=== PATIENT | male | born 1940 | race Caucasian/White ===

== ENCOUNTER 2017-01-12 10:24 | Day surgery (SDC) | payer MEDICARE ==
[~2017-01-12] VITALS: Ht 182.9 cm; Wt 98.5 kg
[~2017-01-12 10:24] MED LIST: AMLO1TAB15 PO; ASPI-483 PO; CITA-108 PO; METO-104 PO; NORMAL SALINE 1,000 ML IV ONE
--- OUTSIDE RECORDS SUMMARY | 2017-01-12 10:28 | XMS REPORT | Continuity of Care Document ---
Author Author [facility] Organization [facility] Address Unknown Phone Unavailable Care Team Providers Care Aeronautics Commission Director Name Role Phone MOHSEN VALDEZ II, MD Primary Care Physician [phone] Insurance Providers Guarantor Alexis Sage Address [address] [place] [address] Email DENIED PT PORTAL 16 Payer [employer] H[employer] Policy Number [id number] Subscriber's Name Alexis Sage Relationship 18 Self Advance Directives Directive Response Recorded Date/Time Dr Land Resuscitation Status Full Code 11/12/16 12:03pm Resuscitation Documents on File No 11/13/16 9:10am DPOA for Healthcare Only No 11/13/16 9:10am Living Will No 11/13/16 9:10am Problems No problem information available. Medications Current Home Medications Medication Dose Units Route Directions Days Qty Instructions Start Date Amlodipine/Valsartan (Exforge 10-320 Mg Tablet) 1 Tab Tablet 1 Tab Oral Daily 11/06/12 Aspirin (Baby Aspirin) 81 Mg Tab.chew 81 Mg Oral Daily 11/06/12 Citalopram Hydrobromide (Celexa) 40 Mg Tablet 40 Mg Oral Daily Metoprolol Succinate 100 Mg Tab.sr.24h 100 Mg Oral Daily 11/06/12 Social History Social History Problem Response Recorded Date/Time Onset Date Status Reason for Hospitalization EXCISION OF NOSE LESION 11/13/2016 1:33pm Not Applicable Not Applicable Chewing Tobacco Status No 11/13/2016 9:05am Not Applicable Not Applicable Hx Substance Use No 11/13/2016 9:05am Not Applicable Not Applicable Hx Alcohol Use No 11/13/2016 9:05am Not Applicable Not Applicable Has the pt used tobacco in the last 12 months Yes 11/13/2016 9:05am Not Applicable Not Applicable Query Response Start Date Stop Date Smoking Status Current every day smoker Hospital Discharge Instructions Instructions: Care Instructions: I was in the hospital because (patient own words): cut this off my nose Discharge Diet: Resume previous diet. Discharge Activity: Restricted. Follow Up Appointments: Call [facility] at ext [phone] and make appointment for patient to see Dr Hawkins for postop visit on 11-25-16 or 11-26-16. Pending Lab / Results: No Pending Lab Expected Signs/Symptoms: Usual incisional discomfort Notify Physician If: Any concerns about appearance of wound. During Business Hours:: Please call the physician's office at [phone] and choose option 2. After Business Hours:: Please call [phone] and have the utility tractor operator page Dr. Hawkins. Pain Management/Treatment: Take analgesics as prescribed. Wound/Incision Care: Remove dressings as instructed by physician. Condition at time of discharge: Good Plan of Care Discharge Date 11/13/16 2:31pm Instructions/Education Provided [facility] Surgical Services Prescriptions See Medication Section Functional Status Query Response Date Recorded Ability to complete ADL's impeded by No change November 13, 2016 9:10am Allergies, Adverse Reactions, Alerts No known allergies. Immunizations Query Response on File Recorded Date/Time Hx Influenza Vaccination Y 201611/13/16 9:05am Hx Pneumococcal Vaccination Y 201611/13/16 9:05am Hx Influenza Vaccination Y 201611/13/16 9:05am Vital Signs Acute Vital Signs Vital Response Date/Time Temperature (Fahrenheit) 97.0 deg F (96.8 - 99.1) 11/13/2016 1:06pm Temperature (Calculated Celsius) 36.22999 degrees C (36.0 - 37.3) 11/13/2016 1:06pm Temperature Source Temporal 11/13/2016 1:06pm Pulse Rate (adult) 58 bpm (60 - 100) 11/13/2016 2:20pm Respiratory Rate 16 breaths/min (10 - 20) 11/13/2016 2:20pm O2 Sat by Pulse Oximetry 91 % (90 - 100) 11/13/2016 2:20pm Oxygen Delivery Method Room Air 11/13/2016 2:20pm Oxygen Flow Rate 6.00 L/min 11/13/2016 1:06pm Blood Pressure 162/75 mm Hg 11/13/2016 2:20pm Blood Pressure Source Automatic Cuff 11/13/2016 2:20pm Height (Feet) 5 feet 11/13/2016 9:01am Height (Inches) 11.00 inches 11/13/2016 9:01am Weight (Kilograms) 98.700 kg 11/13/2016 9:01am Body Mass Index (BMI) 30.4 11/13/2016 9:01am Results Laboratory Results Test Name Result Units Flags Reference Collection Date/Time Result Date/ Time Comments White Blood Count 9.2 T/MM3 4.5-11.0 11/13/2016 9:08am 11/13/2016 9: 14am Red Blood Count 4.83 M/MM3 4.50-5.90 11/13/2016 9:08am 11/13/2016 9: 14am Hemoglobin 14.3 GM/DL 13.5-17.5 11/13/2016 9:08am 11/13/2016 9:14am Hematocrit 43.4 % 41-53 11/13/2016 9:08am 11/13/2016 9:14am Mean Corpuscular Volume 89.9 UM3 80-100 11/13/2016 9:08am 11/13/2016 9: 14am Mean Corpuscular Hemoglobin 29.6 UUG 26-34 11/13/2016 9:08am 2016 9:14am Mean Corpuscular Hemoglobin Concent 32.9 GM/DL 31-37 11/13/2016 9:08am 11/13/2016 9:14am RDW Standard Deviation 47.8 FL 36.9-50.2 11/13/2016 9:08am 11/13/2016 9 :14am Platelet Count 221 T/MM3 130-400 11/13/2016 9:08am 11/13/2016 9:14am Mean Platelet Volume 9.4 UM3 9.4-12.4 11/13/2016 9:08am 11/13/2016 9: 14am Neutrophils (%) (Auto) 65.6 % 33-66 11/13/2016 9:08am 11/13/2016 9: 14am Lymphocytes (%) (Auto) 20.0 % L 23-45 11/13/2016 9:0811/13/2016 9: 14am Monocytes (%) (Auto) 11.2 % H 0-9.0 11/13/2016 9:0811/13/2016 9:14am Eosinophils (%) (Auto) 2.7 % 0-4 11/13/2016 9:0811/13/2016 9:14am Basophils (%) (Auto) 0.3 % 0-2 11/13/2016 9:0811/13/2016 9:14am Immature Granulocyte % (Auto) 0.2 % 0.0-0.5 11/13/2016 9:082016 9:14am Absolute Neutrophils (auto) 6.1 T/MM3 1.8-7.7 11/13/2016 9:082016 9:14am Absolute Lymphocytes (auto) 1.8 T/MM3 1-4.8 11/13/2016 9:082016 9:14am Absolute Monocytes (auto) 1.0 T/MM3 H 0-0.8 11/13/2016 9:082016 9:14am Absolute Eosinophils (auto) 0.3 T/MM3 0-0.5 11/13/2016 9:082016 9:14am Absolute Basophils (auto) 0.0 T/MM3 0-0.2 11/13/2016 9:0811/13/2016 9:14am Absolute Immature Granulocyte (auto 0.02 T/MM3 0.00-0.03 11/13/2016 9: 0811/13/2016 9:14am Icterus Index < 2 0-7 11/13/2016 9:0811/13/2016 9:23am Chemistry Specimen Hemolysis < 15 0-25 11/13/2016 9:0811/13/2016 9 :23am 0-25: Specimen Exhibited No Hemolysis. Turbidity < 20 0-20 11/13/2016 9:0811/13/2016 9:23am Sodium Level 141 MEQ/L 134-144 11/13/2016 9:0811/13/2016 9:23am Potassium Level 4.8 MEQ/L 3.6-5 11/13/2016 9:0811/13/2016 9:23am Chloride Level 107 MEQ/L 98-107 11/13/2016 9:0811/13/2016 9:23am Carbon Dioxide Level 24 MEQ/L 22-30 11/13/2016 9:0811/13/2016 9: 23am Anion Gap 10 MEQ/L 5-15 11/13/2016 9:0811/13/2016 9:23am Blood Urea Nitrogen 20.0 MG/DL 9-11/13/2016 9:0811/13/2016 9: 23am Creatinine 1.4 MG/DL 0.8-1.5 11/13/2016 9:0811/13/2016 9:23am BUN/Creatinine Ratio 14 RATIO 04-1211/13/2016 9:0811/13/2016 9:23am Glomerular Filtration Rate Calc 49 11/13/2016 9:0811/13/2016 9: 23am Glucose Level 113 MG/DL H 75-110 11/13/2016 9:0811/13/2016 9:23am Calculated Osmolality 275 MOSM/KG 261-280 11/13/2016 9:0811/13/2016 9:23am Calcium Level 8.9 MG/DL 8.4-10.2 11/13/2016 9:0811/13/2016 9:23am Total Bilirubin 0.70 MG/DL 0.20-1.30 11/13/2016 9:0811/13/2016 9: 23am Alkaline Phosphatase 124 U/L 38-126 11/13/2016 9:0811/13/2016 9: 23am Total Protein 7.4 G/DL 6.3-8.2 11/13/2016 9:0811/13/2016 9:23am Albumin 3.9 G/DL 3.5-5.0 11/13/2016 9:0811/13/2016 9:23am Globulin 3.5 G/DL 2.4-3.6 11/13/2016 9:0811/13/2016 9:23am Albumin/Globulin Ratio 1.1 RATIO 1.1-2.2 11/13/2016 9:0811/13/2016 9 :23am Aspartate Amino Transf (AST/SGOT) 18 U/L 17-59 11/13/2016 9:08am 2016 9:23am Alanine Aminotransferase (ALT/SGPT) 25 U/L 21-72 11/13/2016 9:08am 9:23am Procedures Procedure Status Date Provider(s) Excision, lesion Completed 11/13/16 ROBYN HAWKINS MD Encounters Encounter Location Arrival/Admit Date Discharge/Depart Date Attending Provider Departed [facility] 11/13/16 8:44am 11/13/16 2: 31pm ROBYN HAWKINS MD
[2017-01-12 11:03] VITALS: BP 166/78; PULSE 58; RESP 16; TEMP 97.9; O2SAT 97; Ht 182.9 cm; Wt 98.5 kg
[2017-01-12 11:22] LABS: BASOPHILS % (AUTO) 0.5 % (0-2); EOSINOPHILS # (AUTO) 0.2 T/MM3 (0-0.5); HCT - HEMATOCRIT 43.5 % (41-53); HGB - HEMOGLOBIN 14.2 GM/DL (13.5-17.5); IMMATURE GRANULOCYTE # (AUTO) 0.03 T/MM3 (0.00-0.03); IMMATURE GRANULOCYTE % (AUTO) 0.3 % (0.0-0.5); LYMPHOCYTES # (AUTO) 1.9 T/MM3 (1-4.8); LYMPHOCYTES % (AUTO) 21.4 % (23-45); MEAN CORPUSCULAR HGB CONC(MCHC 32.6 GM/DL (31-37); MEAN CORPUSCULAR VOLUME 88.8 UM3 (80-100); MEAN PLATELET VOLUME 9.4 UM3 (9.4-12.4); MONOCYTES % (AUTO) 11.3 % (0-9.0); NEUTROPHILS #(AUTO)-ABSOLUTE 5.6 T/MM3 (1.8-7.7); NEUTROPHILS % (AUTO) 64.5 % (33-66); WBC - WHITE BLOOD COUNT 8.7 T/MM3 (4.5-11.0)
[2017-01-12 11:33] LABS: ALBUMIN/GLOBULIN RATIO 1.1 RATIO (1.1-2.2); ALKALINE PHOSPHATASE 119 U/L (38-126); ALT (SGPT) 27 U/L (21-72); ANION GAP 8 MEQ/L (5-15); AST (SGOT) 19 U/L (17-59); BUN/CREATININE RATIO 11 RATIO (6-26); CALCIUM 8.9 MG/DL (8.4-10.2); CHLORIDE 109 MEQ/L (98-107); CO2 - CARBON DIOXIDE 25 MEQ/L (22-30); CREATININE 1.5 MG/DL (0.8-1.5); GLOMERULAR FILTRATION RATE 45; GLUCOSE 122 MG/DL (75-110); POTASSIUM 4.6 MEQ/L (3.6-5); SODIUM 142 MEQ/L (134-144); TOTAL PROTEIN 7.7 G/DL (6.3-8.2)
--- NOTE | 2017-01-12 13:09 | ANESPREOP ---
Anesthesia Record Date and Time DATE: 01/12/17 TIME: 13:06 Pre-Op Diagnosis suspicious skin lesion at left lower eye Proposed Surgical Procedure SKIN CANCER REMOVAL NPO since: mn Allergies: Coded Allergies: No Known Allergies (Unverified , 11/13/16) Ht/Wt/BMI Height: 6 ' 0.00 " Weight: 98.500 kg BMI: 29.5 kg/m2 Vital Signs Date Time Temp Pulse Resp B/P Pulse Ox O2 Delivery O2 Flow Rate FiO2 01/12/17 11:03 97.9 58 16 166/78 97 Room Air Medications Amlodipine/Valsartan (Exforge 10-320 Mg Tablet) 1 Tab Tablet, 1 TAB PO DAILY, ( Reported) Last Taken: on 01/11/17 Aspirin (Baby Aspirin) 81 Mg Tab.chew, 81 MG PO DAILY, (Reported) Last Taken: on 01/11/17 Citalopram (Celexa) 40 Mg Tablet, 40 MG PO DAILY, ( Reported) Last Taken: on 01/11/17 Metoprolol Succinate (Metoprolol Succinate) 100 Mg Tab.sr.24h, 100 MG PO DAILY, (Reported) Last Taken: on 01/12/17 0800 Currently on Beta Barrett: Yes Beta Barrett Last Taken: METOPROLOL 0800 01-12-17 Medical/Surgical History Anesthesia PMH: Reports: *Hypertension, Arthritis ("everywhere"), Renal Disease (CKD PER H&P), Denies: Anesthesia Reactions (NO AIRWAY ISSUES), Cancer, Glaucoma, Malignant Hyperthermia, Sleep Apnea Smoking Status: Never smoker # of Packs per Day: 1/4 # of Years: 50 Use Chewing Tobacco?: No Second Hand Exposure: No Substance Use Type: does not use Alcohol Intake: none Past Surgical History Orthopedic Surgeries: Abdominal Surgeries: Genitourinary Surgeries: Cardiac Surgeries: Endocrine Surgeries: Reproductive Surgeries: Neurological Surgeries: Ear Surgeries: Nose Surgeries: Throat Surgeries: Yes - TONSILLECTOMY Other Surgeries: Yes - CATARACT OD & OS Anesthesia Adverse Reactions: FOUND none Family Hx of Anesthesia Advers: none Pertinent Findings Laboratory Tests 01/12/17 11:11 EKG Rhythm: Sinus Rhythm, Bundle Branch Block Physical Exam Respiratory: Bilat breath sounds equal, Lungs clear Cardiovascular: FOUND Regular rate, rhythm, FOUND No murmur Airway Assessment Mallampati Score: III TMD: 3 Fingerbreadths Neck Extension: Poor Teeth: Upper Dentures, Lower Dentures Overall Assessment: May Be Diff Intubation ASA: 2 Plan Anesthesia Plan: TIVA, LMA Discussion Discussed risks/options/alternatives of anesthesia and questions answered. Patient consents. Nursing pain assessment noted. Attestation Statement Prior to the delivery of any anesthetic medication, I examined the patient, developed the plan, obtained the patient's consent and discussed the risk and benefits of the procedure with the patient/guardian. CATY BOWMAN SYNTHETIC [employer]IL BLOCKS PULPER Jan 12, 2017 13:09
[2017-01-12] MEDS ORDERED: FENTANYL 100mcg/2ml INJECTION ONE (13:26)
[2017-01-12] MEDS ORDERED: LIDOCAINE 2% (20mg/ml) 5ml PF SDV ONE (13:26)
[2017-01-12] MEDS ORDERED: PROPOFOL 500mg 50 ML IV ONE ×2 (13:26→14:31)
[2017-01-12] MEDS ORDERED: KETAMINE 500mg/10ml INJECTION ONE (13:26)
[2017-01-12] MEDS ORDERED: MIDAZOLAM 2mg/2ml INJECTION ONE (13:26)
[2017-01-12] MEDS ORDERED: BUPIVACAINE 0.25% (2.5mg/ml) INJ 30ml SDV ONE (13:30)
[2017-01-12] MEDS ORDERED: CEFAZOLIN 1 GRAM INJECTION IV ONE (13:45)
[2017-01-12] MEDS ORDERED: EPHEDRINE SULFATE 50mg/ml INJECTION ONE (14:02)
[2017-01-12] MEDS ORDERED: SALINE FLUSH 10ml SYRINGE ONE (14:02)
--- NOTE | 2017-01-12 15:53 | GSPOSTPROC ---
Immediate Operative Note DATE: 01/12/17 TIME: 15:50 Postop Diagnosis: Basal cell skin carcinoma at left lower eyelid Surgical Procedure: Other (Excision of basal cell skin carcinoma at left lower eyelid) Surgeon: Elizabeth ASA: 2 ROBYN HAWKINS MD Jan 12, 2017 15:53
[2017-01-12 15:56] VITALS: BP 131/63; PULSE 66; RESP 11; TEMP 97; O2SAT 98
[2017-01-12] MEDS ORDERED: OXYCODONE I.R. 5 MG TABLET PO PRN (16:00)
[2017-01-12] MEDS ORDERED: ACETAMINOPHEN 500 MG TABLET PO PRN (16:00)
[2017-01-12] MEDS ORDERED: ONDANSETRON 4mg/2ml INJECTION IV PRN (16:00)
[2017-01-12] MEDS ORDERED: IBUPROFEN 200 MG TABLET PO PRN (16:00)
--- NOTE | 2017-01-12 16:08 | ANESPO ---
Post-Op Note Date 01/12/17 Time: 16:07 Status Pt Participated in Evaluation: Pt participated in person Vital Signs Date Time Temp Pulse Resp B/P Pulse Ox O2 Delivery O2 Flow Rate FiO2 01/12/17 15:56 97.0 66 11 131/63 98 Mask 6.00 Respiratory Function: Airway patent, Regular respirations Cardiovascular Function: Regular pulse Mental Status: Alert/oriented Pain Level Intensity: 0 Hydration: Taking po fluids Complications during Recovery None apparent Follow-Up Instructions Instructions Per Surgeon BRIGITTE ROBINS PROCTOLOGIST STUDENT Jan 12, 2017 16:08
[2017-01-12 16:11] VITALS: BP 134/67; PULSE 69; RESP 16; O2SAT 93
[2017-01-12 16:26] VITALS: BP 125/66; PULSE 67; RESP 16; O2SAT 93
[2017-01-12 16:41] VITALS: BP 126/59; PULSE 64; RESP 16; O2SAT 93
[2017-01-12 17:04] VITALS: BP 128/60; PULSE 63; RESP 16; O2SAT 94
--- NOTE | 2017-01-13 11:56 | OPNOTEF ---
DATE OF OPERATION 01/12/2017 PREOPERATIVE DIAGNOSIS Suspicious skin lesion at left lower eyelid. POSTOPERATIVE DIAGNOSIS Basal cell skin carcinoma at left lower eyelid. OPERATION Excision of basal cell skin carcinoma from left lower eyelid with closure of excision site with full-thickness skin graft. SURGEON Israel Johnson MD [facility] A[facility] CLASS 2 FINDINGS This patient did have a 14 mm x 7 mm suspicious skin lesion at the left lower eyelid at the medial end of the left lower eyelid. A piece of skin and subcutaneous tissue containing this skin lesion at the left lower eyelid was excised and submitted as a specimen for frozen section examination by the pathologist. The pathologist did return a verbal frozen section examination report indicating that this was a basal cell skin carcinoma and that all resection margins were negative and free of tumor involvement although the tumor came close to the deep resection margin. DESCRIPTION OF OPERATION The patient was placed in supine position on the operating table. The patient was premedicated with intravenous sedation medication administered by the nurse retirement plan specialist. The left side of the face, left side of the neck, left supraclavicular area and left infraclavicular area were all prepped and draped in routine sterile fashion. The skin and subcutaneous tissue at the suspicious skin lesion site at the left lower eyelid were infiltrated with bupivacaine 0.25% without epinephrine. The scalpel was used to excise a piece of skin and subcutaneous tissue which contained this 14 mm x 7 mm suspicious skin lesion along with a 2 mm margin of normal-appearing skin on all sides. This specimen of skin and subcutaneous tissue was pinned to a cloth drape with some needles and superior, inferior, medial and lateral margins were marked on the cloth drape around specimen to orient the specimen for the pathologist. The specimen was then submitted for frozen section examination by the pathologist. Hemostasis was achieved at the excision site wound at the left lower eyelid by coagulating bleeding points with the monopolar electrosurgery device with fine needle tip electrode. A verbal frozen section examination report was then returned by the pathologist with findings as described above. Some additional tissue at the base of the wound was then excised to get wider deep margins. This specimen of tissue was submitted in formalin for permanent sections. It was not submitted for frozen section examination. Hemostasis was achieved at the base the wound by coagulation of bleeding points with the monopolar electrosurgery device with fine needle tip electrode. Attention was directed to the full-thickness skin graft donor site at the left supraclavicular area. A skin marker pen was used to shadi out an elliptical incision at this area. The skin and subcutaneous tissue at the donor site were infiltrated with bupivacaine. An ellipse of full thickness skin as well as some subcutaneous tissue was excised from the donor site at the left supraclavicular area. Hemostasis was achieved at the donor site by coagulating bleeding points with the monopolar electrosurgery device. Skin margins at each side of the elliptical wound were undermined. Skin margins from each side of the elliptical wound at the left supraclavicular area were first approximated to one another with a series of interrupted subcuticular stitches using 3-0 Vicryl suture. Skin margins were then more closely approximated to one another with skin kwasi. The piece of full-thickness skin which had been excised from the donor site was examined. The piece of skin was trimmed free of all subcutaneous fat until the white surface of the dermis was apparent. The full-thickness skin graft was then applied to the excision site wound at the left lower eyelid. The full-thickness skin graft was tailored to exactly fit into the excision site wound. The full-thickness skin graft was then secured to margins of the excision site with a series of interrupted horizontal mattress stitches using 4-0 Vicryl suture. The 4-0 Vicryl sutures were left long for use in tying down over a tie-over stent dressing. Xeroform gauze was placed over the full-thickness skin graft at the left lower eyelid. The 4-0 Vicryl stitches which had been left long were then tied down over this piece of Xeroform gauze to form a tie-over stent dressing. Sterile dressings were applied to the full-thickness skin graft donor site at the left supraclavicular area. A Band-Aid was applied over the tie-over stent dressing of the left lower eyelid. The patient did continue to receive intravenous sedation medication administered by the nurse retirement plan specialist throughout the operation as needed to maintain patient comfort. The patient did appear to tolerate the operation well. The patient was transferred from the operating room in satisfactory condition. DINH
== END 2017-01-12 17:23 ==
LOC: SCU 10:24
PROVIDERS: ATTEND Surgery
DX: C44.119 Basal cell carcinoma of skin of left eyelid, including canthus (principal); I12.9 Hypertensive chronic kidney disease with stage 1 through stage 4 chronic kidney disease, or unspecified chronic kidney disease; N18.9 Chronic kidney disease, unspecified; F41.9 Anxiety disorder, unspecified; F32.9 Major depressive disorder, single episode, unspecified; E78.5 Hyperlipidemia, unspecified; F17.210 Nicotine dependence, cigarettes, uncomplicated; Z79.82 Long term (current) use of aspirin; Z79.899 Other long term (current) drug therapy; Z85.828 Personal history of other malignant neoplasm of skin
CPT/HCPCS: 11643; 15260; 36415; 80053; 85025; A6222; J0690; J2250; J3010; J7030